=== PATIENT | female | born 1940 | race Caucasian/White ===

== ENCOUNTER 2017-08-06 23:13 | Emergency (ER) | payer OTHER ==
[~2017-08-06] VITALS: Ht 157.5 cm; Wt 77.5 kg
[~2017-08-06 23:13] MED LIST: BENA20TA14 PO; LEVO175T23 PO; NXM/40 PO; PRED10TA PO; SIMV20TA2 PO
[2017-08-06 23:26] VITALS: TEMP 36.3; Ht 157.5 cm; Wt 77.5 kg
[2017-08-06] MEDS ORDERED: KETOROLAC TROMETHAMINE 30 MG/ML VIAL IV STA (23:46)
--- NOTE | 2017-08-06 23:51 | EMERGENCY ROOM VISIT NOTE ---
History Report prepared by Jeanie: Harper Del Rosario Under the Supervision of: Dr. Prakash Chamberlain M.D. First contact with patient: 23:29 Chief Complaint: FALL Stated Complaint: FELL A WEEK AGO,RT SIDE PAIN History of Present Illness The patient is a 76 year old female who presents to the Emergency Room with complaints of persistent right chest pain starting last week. The patient fell while she was taking the garbage out last week. She slipped because of her shoes. She fell onto her right side and hit her head. She did not lose consciousness. She was able to get herself up. She went to see a doctor the next day. She did not have any X-rays and was thought to be in good enough condition to go home. Since her fall, she has had pain in her right chest and back. Today as she was getting ready for bed, the pain became too much for her to stay at home. She has not taken anything for her pain. The pain improves with a heating pad. The pain worsens with breathing and movement. She has some pain around her right eyebrow where she hit her head. She denies any abdominal pain, headache, dental pain, SOB, jaw pain, neck pain, trouble swallowing, hip pain, or leg pain. Her sister states that she has been acting normally since the fall. She has a history of hypertension, high cholesterol, and hypothyroidism. She takes a baby aspirin daily. Source of History: patient, sibling Onset: last week Position: chest (right) Quality: other (pain) Timing: other (persistent) Modifying Factors (Worsening): breathing, movement Modifying Factors (Relieving): heat Associated Symptoms: No headache, No neck pain, No SOB, No abdominal pain Note: Pt reports right eyebrow pain. Pt denies dental pain, jaw pain, trouble swallowing, hip pain, leg pain. Review of Systems See HPI for pertinent positives & negatives. A total of 10 systems reviewed and were otherwise negative. Past Medical & Surgical Medical Problems: (1) High cholesterol (2) Hypertension (3) Hypothyroidism Old medical records were reviewed. Nurse's notes were reviewed and I agree with. Family History No pertinent family history stated. Social History Marital Status: single Occupation Status: retired Current/Historical Medications Scheduled Amoxicillin & Pot Clavulanate (Augmentin 875-125 mg), 875 MG PO BID Aspirin (Aspirin Ec), 81 MG PO DAILY Benazepril (Lotensin), 20 MG PO DAILY Calcium Carbonate-Vitamin D (Calcium 600 + D), 2 TABS PO DAILY Levothyroxine Sodium (Levothyroxine Sodium), 1 TAB PO DAILY Multivitamin (Multivitamin), 1 TAB PO DAILY Omeprazole (Prilosec), 20 MG PO DAILY Simvastatin (Zocor), 20 MG PO QPM Allergies Uncoded Allergies: STEROIDS (Allergy, UNKNOWN, 12/05/13) HIGH BP Physical Exam Vital Signs Date Time Temp Pulse Resp B/P (MAP) Pulse Ox O2 Delivery O2 Flow Rate FiO2 08/07/17 00:59 64 16 146/78 99 08/06/17 23:26 36.3 72 18 210/85 97 Room Air Physical Exam General: Older female complaining of pain in her right chest with movement, otherwise no distress. Well developed well nourished, breathing comfortably on room air. Normal speech HEENT: Normal cephalic. No jaw tenderness. Bruise below the right eye. Pupils are equal round and reactive to light. Extraocular movements are intact. No hyphema. Oropharynx is pink with moist mucous membranes. No swelling of the mouth lips or tongue. Neck: Supple with a midline trachea. No meningeal signs or stiffness, no JVD or bruits. No Stridor. Chest: Clear to auscultation bilaterally. No wheezes or rhonchi. No increased work of breathing. Mild diffuse tenderness to the right anterior and posterior chest. Heart: regular rate and rhythm. Abdomen: Soft nontender, nondistended without rebound guarding or rigidity. Extremities: No cyanosis clubbing or edema. No calf tenderness or assymetry Spine/Back. Non tender to palpation. No CVA tenderness Skin: Good turgor without rashes. Neurologic exam: Cranial nerves two through 12 are intact. Motor and sensation are intact and symmetrical throughout. Medical Decision & Procedures ER Provider Diagnostic Interpretation: Ribs w/chest x-ray per my interpretation reveals no definite rib fracture seen, no pneumothorax, some increased markings at the right base, may be atelectasis or possible infiltrate. Radiology results as stated below per my review and [facility] radiologist interpretation: CAT scan of the head and face shows no acute traumatic injuries. Laboratory Results 08/06/17 23:55 Red Blood Count 4.83, Mean Corpuscular Volume 90.5, Mean Corpuscular Hemoglobin 30.8, Mean Corpuscular Hemoglobin Concent 34.1, Mean Platelet Volume 9.8, Neutrophils (%) (Auto) 49.2, Lymphocytes (%) (Auto) 39.6, Monocytes (%) (Auto) 7.7, Eosinophils (%) (Auto) 2.8, Basophils (%) (Auto) 0.6, Neutrophils # (Auto) 3.47, Lymphocytes # (Auto) 2.79, Monocytes # (Auto) 0.54, Eosinophils # (Auto) 0.20, Basophils # (Auto) 0.04 08/06/17 23:55 Test 08/06/17 23:55 08/07/17 00:03 White Blood Count 7.05 K/uL (4.8-10.8) Red Blood Count 4.83 M/uL (4.2-5.4) Hemoglobin 14.9 g/dL (12.0-16.0) Hematocrit 43.7 % (37-47) Mean Corpuscular Volume 90.5 fL (80-100) Mean Corpuscular Hemoglobin 30.8 pg (25-34) Mean Corpuscular Hemoglobin Concent 34.1 g/dl (32-36) Platelet Count 331 K/uL (130-400) Mean Platelet Volume 9.8 fL (7.4-10.4) Neutrophils (%) (Auto) 49.2 % Lymphocytes (%) (Auto) 39.6 % Monocytes (%) (Auto) 7.7 % Eosinophils (%) (Auto) 2.8 % Basophils (%) (Auto) 0.6 % Neutrophils # (Auto) 3.47 K/uL (1.4-6.5) Lymphocytes # (Auto) 2.79 K/uL (1.2-3.4) Monocytes # (Auto) 0.54 K/uL (0.11-0.59) Eosinophils # (Auto) 0.20 K/uL (0-0.5) Basophils # (Auto) 0.04 K/uL (0-0.2) RDW Standard Deviation 42.7 fL (36.4-46.3) RDW Coefficient of Variation 13.0 % (11.5-14.5) Immature Granulocyte % (Auto) 0.1 % Immature Granulocyte # (Auto) 0.01 K/uL (0.00-0.02) Anion Gap 6.0 mmol/L (3-11) Est Creatinine Clear Calc Drug Dose 61.7 ml/min Estimated GFR () 88.9 Estimated GFR (Non- 76.7 BUN/Creatinine Ratio 14.1 (10-20) Calcium Level 9.2 mg/dl (8.5-10.1) Total Bilirubin 0.2 mg/dl (0.2-1) Direct Bilirubin < 0.1 mg/dl (0-0.2) Aspartate Amino Transf (AST/SGOT) 29 U/L (15-37) Alanine Aminotransferase (ALT/SGPT) 36 U/L (12-78) Alkaline Phosphatase 124 U/L (45-117) Total Protein 7.5 gm/dl (6.4-8.2) Albumin 3.8 gm/dl (3.4-5.0) Lipase 152 U/L (73-393) Bedside Troponin I < 0.030 ng/ml (0-0.045) Laboratory studies as stated above per my review. Medications Administered Medications (Trade) Dose Ordered Sig/Royal Route Start Time Stop Time Status Last Admin Dose Admin Ketorolac Tromethamine (Toradol Inj) 15 mg NOW STAT IV 08/06/17 23:46 08/06/17 23:50 DC 08/07/17 00:05 15 MG Amoxicillin/ Clavulanate Potassium (Augmentin 875MG Home Pack) 1 homepack UD ONCE PO 08/07/17 01:45 08/07/17 01:46 DC 08/07/17 01:45 1 HOMEPACK ECG Indication: chest pain Rate (beats per minute): 65 Rhythm: normal sinus Findings: no acute ischemic change, no ectopy, other (LVH) Comparison ECG Date: 12-Dec-2016 Change: Rate is decreased, otherwise no change. ED Course 2329: Past medical records reviewed. The patient was evaluated in room A11B, and a complete history and physical examination were performed. 2346: Toradol Inj 15 mg IV. 0044: I reevaluated the patient. She seems comfortable. We are waiting on the CT results. 0128: Upon reevaluation, the patient is resting comfortably. I discussed the results and treatment plan with her. She verbalized agreement of the treatment plan. The patient was discharged home. 0145: Amoxicillin/Clavulanate Potassium 1 homepack PO. Medical Decision Differentials include, but are not limited to; rib fracture, pneumothorax, intracranial hemorrhage, facial fracture, concussion, cardiac disease. This patient comes in as described above. She suffered a mechanical fall week ago . She hit her head and face and continues had pain along the right side of the chest. It is worse with movement and breathing and palpation. She looks well except for when she moves. She has no abdominal pain or trauma. IV access was established and she was given Toradol 15 mg IV. I did x-ray of her chest with rib series as well as a CAT scan of her head and face. EKG and blood work was obtained. She was reassessed frequently. She seems resting comfortably. Her EKG and her symptoms do not suggest cardiac disease. She is definitely reproducible and this occurred after she fell. Troponin is not elevated. She has no acute electrode or metabolic abnormalities. She's no fever or white count to suggest infection. An x-ray however she does have some increased haziness in her right base of may be atelectasis. She certainly be at risk to have a pneumonia as well I will put her on Augmentin 875 mg twice day for possible early pneumonia. I do not see definite rib fractures. She does have some osteoporosis and degenerative changes so it's hard to 100% rule out a rib fracture. If she were to have rib fractures at this point, I doubt it would change management expert and it's basically pain medicine at this point. She does not typically take any medications for pain. She's can use ibuprofen and used Tylenol/acetaminophen for pertinent for breakthrough pain. I also gave her an incentive spirometer which encouraged her to use. She is going to keep her appointment with her doctor Wednesday for recheck and return to ER over the weekend if: increasing pain, worsening of symptoms, any new problems or concerns. Her blood pressure is mildly elevated and she is being treated for hypertension. She should follow up with her doctor get this rechecked as well. The patient and her sister happy with the plan and she was discharged to home. Head Trauma GCS Score: 15 Medication Reconcilliation Current Medication List: was personally reviewed by me Blood Pressure Screening Patient's blood pressure: Elevated blood pressure Blood pressure disposition: Referred to PCP Impression Primary Impression: Rib contusion Additional Impression: Right-sided chest wall pain Scribe Attestation The scribe's documentation has been prepared under my direction and personally reviewed by me in its entirety. I confirm that the note above accurately reflects all work, treatment, procedures, and medical decision making performed by me. Departure Information Dispostion Home / Self-Care Prescriptions Amoxicillin & Pot Clavulanate (Augmentin 875-125 mg) 1 Tab Tab 875 MG PO BID for 7 Days, TAB Prov: Prakash Chamberlain M.D. 08/07/17 Referrals Pranav Gutiérrez MD (PCP) Forms HOME CARE DOCUMENTATION FORM, IMPORTANT VISIT INFORMATION Patient Instructions My [facility] Additional Instructions Rest. Use incentive spirometer several times an hour and ensure that you are taking deep breaths Use ibuprofen 400 mg every 6 hours, take with food May also use acetaminophen/Tylenol a maximum of 650 mg every 6 hours Do not take acetaminophen/Tylenol with any other medications that contain acetaminophen/Tylenol Return if: Increasing pain, worsening of symptoms, fever or chills, shortness of breath, any new problems or concerns Use Augmentin 875 mg twice a day for the next 7 days Keep your appointment with your doctor on Wednesday and return to the ER over the weekend if symptoms worsen Problem Qualifiers
[2017-08-07 00:11] LABS: BASO % 0.6 %; BASO ABS # 0.04 K/uL (0-0.2); COMPLETE YES; EOS % 2.8 %; HEMATOCRIT 43.7 % (37-47); IG% 0.1 %; LYMPH % 39.6 %; LYMPH ABS # 2.79 K/uL (1.2-3.4); MEAN CELL VOLUME 90.5 fL (80-100); MEAN CORPUSCULAR HEMOGLOBIN 30.8 pg (25-34); MEAN CORPUSCULAR HGB CONC 34.1 g/dl (32-36); MEAN PLATELET VOLUME 9.8 fL (7.4-10.4); MONO % 7.7 %; NEUT % 49.2 %; PLATELET COUNT 331 K/uL (130-400); RED BLOOD COUNT 4.83 M/uL (4.2-5.4); WHITE BLOOD COUNT 7.05 K/uL (4.8-10.8)
[2017-08-07 00:29] LABS: ALT/SGPT 36 U/L (12-78); AST/SGOT 29 U/L (15-37); BLOOD UREA NITROGEN 11 mg/dl (7-18); BUN/CREATININE RATIO 14.1 (10-20); CALCIUM 9.2 mg/dl (8.5-10.1); CARBON DIOXIDE 30 mmol/L (21-32); CHLORIDE 104 mmol/L (98-107); CREATININE 0.76 mg/dl (0.60-1.20); GLUCOSE 128 mg/dl (70-99); POTASSIUM 3.8 mmol/L (3.5-5.1); SODIUM 140 mmol/L (136-145)
[2017-08-07 00:32] LABS: ALKALINE PHOSPHATASE 124 U/L (45-117)
[2017-08-07] MEDS ORDERED: AMOX875T PO (01:19)
[2017-08-07] MEDS ORDERED: MULT-506 PO (01:34)
[2017-08-07] MEDS ORDERED: PRLSR20 PO (01:34)
[2017-08-07] MEDS ORDERED: LEVO88TA3 PO (01:34)
[2017-08-07] MEDS ORDERED: ASPI81TA28 PO (01:35)
[2017-08-07] MEDS ORDERED: CALC-20 PO (01:35)
[2017-08-07] MEDS ORDERED: AMOXICIL/CLAVU 875MG HOME PACK PO ONE (01:45)
[2017-08-07 02:08] VITALS: BP 144/80; PULSE 74; O2SAT 97
--- NOTE | 2017-08-07 06:24 | DIAGNOSTIC IMAGING REPORT ---
HEAD CT NONCONTRAST CT DOSE: HISTORY: Fall. eval for trauma TECHNIQUE: Multiaxial CT images of the head were performed without the use of intravenous contrast. Automated exposure control was utilized for this study. A dose lowering technique was utilized adhering to the principles of ALARA. Comparison: None. Findings: Near complete opacification of the mastoid air cells. The paranasal sinuses are clear. The calvarium and skull base are intact. The ventricles and sulci are within normal limits. There is no mass, hematoma, midline shift, or acute infarct. Impression: No acute intracranial abnormality. Bilateral mastoid effusions. Electronically signed by: Erick Romano M.D. 08/07/2017 6:22 AM Dictated Date/Time: 08/07/2017 6:21 AM
--- NOTE | 2017-08-07 06:26 | DIAGNOSTIC IMAGING REPORT ---
MAXILLOFACIAL CT CT DOSE: 1094.16 mGy.cm HISTORY: Fall. Right eye pain. eval for trauma TECHNIQUE: Multiaxial CT images of the maxillofacial region were performed and reformatted in the coronal plane without the use of contrast. A dose lowering technique was utilized adhering to the principles of ALARA. COMPARISON: None. FINDINGS: The visualized cervical spine, skull base, pterygoid plates, nasal bones, lamina papyracea, orbital floors, mandible, and zygomatic arches are intact. No fractures. The globes and retrobulbar fat are unremarkable. Mild right periorbital soft tissue swelling. IMPRESSION: No fractures within the maxillofacial region. Electronically signed by: Erick Romano M.D. 08/07/2017 6:25 AM Dictated Date/Time: 08/07/2017 6:22 AM
--- NOTE | 2017-08-07 07:22 | DIAGNOSTIC IMAGING REPORT ---
R RIBS UNILATERAL WITH PA CHEST CLINICAL HISTORY: EVAL FOR RIB FX. Fall. Right-sided rib pain. COMPARISON STUDY: Chest 12/12/2010. FINDINGS: The heart is stable in size. Mildly tortuous thoracic aorta. No new focal lung consolidations. Increased markings within the right medial lung base are not significantly changed. No pleural effusions. No pneumothorax. Cholecystectomy. Suspect a right lateral third nondisplaced rib fracture. IMPRESSION: Probable nondisplaced right lateral third rib fracture. No pneumothorax. Electronically signed by: Erick Romano M.D. 08/07/2017 7:21 AM Dictated Date/Time: 08/07/2017 7:17 AM
== END 2017-08-07 02:10 | disposition home or self-care (01) ==
LOC: C.EDB 23:14 → C.EDA 08-07 02:10
DX: S20.20XA Contusion of thorax, unspecified, initial encounter (principal); R07.89 Other chest pain; W19.XXXA Unspecified fall, initial encounter; E78.00 Pure hypercholesterolemia, unspecified; I10 Essential (primary) hypertension; E03.9 Hypothyroidism, unspecified; Z79.82 Long term (current) use of aspirin

== ENCOUNTER 2021-09-02 22:29 | Inpatient (IN) ==
[2021-09-02] MEDS ORDERED: SODIUM CHLORIDE 0.9% 1000ML 1,000 ML IV ONE (23:43)
--- NOTE | 2021-09-02 23:49 | Emergency Department Note ---
History of Present Illness General Chief complaint: Vomiting Stated complaint: SICK IN STOMACH, VOMITING Time Seen by Provider: 09/02/21 23:20 Source: patient and family Mode of arrival: ambulatory Limitations: no limitations History of Present Illness Provider complaint: nausea, vomiting, congestion Onset (ago): day(s) 3 Maximum Pain Intensity: 5 Treatments prior to arrival: cold therapy and other This is a 80-year-old female presents emergency department complaining of nausea, vomiting, and recent nasal congestion. Daughter bedside states she is concerned for dehydration that she feels her mother has been worsening since Wednesday when she first developed symptoms of nasal congestion and rhinorrhea. Patient was afebrile and hemodynamically stable here. Patient states she has had difficulty eating and drinking over the last 2 days. States she has been intermittently nauseated. Patient states she does have intermittent congestion. She states she has been taking Claritin and using a nasal spray without any relief. She denies fevers or chills. Denies diarrhea, abdominal pain, chest pain, overt shortness of breath. Pt seen during a time of high acuity and national emergency pandemic while wearing PPE. Home Medications Medication Instructions Recorded Confirmed Type amlodipine 2.5 mg tablet 2.5 mg PO DAILY 09/03/21 09/03/21 History calcium citrate 250 mg 1 tab PO DAILY 09/03/21 09/03/21 History calcium-vitamin D3 5 mcg (200 unit) tablet coenzyme Q10 100 mg capsule 100 mg PO DAILY 09/03/21 09/03/21 History (CoQ-10) diphenhydramine HCl 25 mg tablet 25 mg PO Q6H PRN 09/03/21 09/03/21 History (Benadryl Allergy) fexofenadine 180 mg tablet 180 mg PO DAILY PRN 09/03/21 09/03/21 History fluticasone propionate 50 2 spray INTRANASAL DAILY 09/03/21 09/03/21 History mcg/actuation nasal spray,suspension hydrochlorothiazide 25 mg tablet 25 mg PO DAILY 09/03/21 09/03/21 History levothyroxine 100 mcg tablet 100 mcg PO DAILYBB 09/03/21 09/03/21 History losartan 100 mg tablet 100 mg PO DAILY 09/03/21 09/03/21 History magnesium 250 mg tablet 250 mg PO DAILY 09/03/21 09/03/21 History meloxicam 7.5 mg tablet 7.5 mg PO DAILY 09/03/21 09/03/21 History multivitamin 1 tab PO DAILY 09/03/21 09/03/21 History omeprazole 20 mg capsule,delayed 20 mg PO DAILYBB 09/03/21 09/03/21 History release simvastatin 20 mg tablet 20 mg PO HS 09/03/21 09/03/21 History Allergies Allergy/AdvReac Type Severity Reaction Status Date / Time oseltamivir [From Tamiflu] Allergy Unknown Nausea/Vomi Unverified 09/03/21 07:10 ting Corticosteroids AdvReac HIGH BP Verified 09/03/21 06:21 (Glucocorticoids) WITH STEROIDS Past Med/Surg History Medical History Hypertension Social History Smoking Status: Former smoker Preferred Language: Indonesian Feels Safe at Home: Yes Review of Systems A total of 10 systems reviewed and were otherwise negative All systems reviewed & are unremarkable except as noted in HPI & below Physical Exam Vital Signs Vital Signs - 24 hr 09/02/21 22:32 09/03/21 00:17 09/03/21 01:53 Temperature 36.5 C Temperature Source Temporal Artery Scan Pulse Rate 77 Pulse Rate [Apical] 68 66 Pulse Rhythm [Apical] Regular Regular Pulse Strength [Apical] Normal Respiratory Rate 18 16 16 Respiratory Effort / Characteristics Non-Labored Spontaneous Non-Labored Spontaneous Non-Labored Spontaneous Respiratory Depth Normal Normal Normal Respiratory Pattern Regular Regular Regular Blood Pressure 132/74 Blood Pressure [Right Arm] 119/79 137/70 Blood Pressure Mean 93 Blood Pressure Mean [Right Arm] 92 92 Blood Pressure Position Sitting Blood Pressure Position [Right Arm] Lying Lying Pulse Oximetry 93 95 97 Oxygen Delivery Method Room Air Nasal Cannula Nasal Cannula Oxygen Flow Rate 2 2 Sepsis Recent Fever Within 48 Hours No Sepsis New/Unexplained Change in Mental Status No Sepsis Action Taken by Nursing No Action Required 09/03/21 03:30 Temperature Temperature Source Pulse Rate Pulse Rate [Apical] 72 Pulse Rhythm [Apical] Pulse Strength [Apical] Respiratory Rate 20 Respiratory Effort / Characteristics Non-Labored Spontaneous Respiratory Depth Normal Respiratory Pattern Blood Pressure Blood Pressure [Right Arm] 146/82 H Blood Pressure Mean Blood Pressure Mean [Right Arm] 103 Blood Pressure Position Blood Pressure Position [Right Arm] Pulse Oximetry 96 Oxygen Delivery Method Nasal Cannula Oxygen Flow Rate 2 Sepsis Recent Fever Within 48 Hours Sepsis New/Unexplained Change in Mental Status Sepsis Action Taken by Nursing GENERAL: alert, ill appearing, well nourished, no distress, non-toxic EYE EXAM: normal conjunctiva, PERRL and EOM's grossly intact OROPHARYNX: no exudate, no erythema, lips, buccal mucosa, and tongue normal and mucous membranes are moist NECK: supple, no nuchal rigidity, no adenopathy, non-tender LUNGS: Clear to auscultation. Normal chest wall mechanics, no w/r/r, patient 89% on room air HEART: no murmurs, S1 normal and S2 normal ABDOMEN: abdomen soft, non-tender, normo-active bowel sounds, no masses, no rebound or guarding. BACK: Back is symmetrical on inspection and there is no deformity, no midline tenderness, no CVA tenderness. SKIN: no rashes and no bruising UPPER EXTREMITIES: upper extremities are grossly normal. FROM, nml pulses b/l. LOWER EXTREMITIES: No pitting edema. FROM, nml pulses b/l. NEURO EXAM: Normal sensorium, cranial nerves II-XII grossly intact, normal speech, no gross weakness of arms, no gross weakness of legs. Gross sensation intact. Course Course 0135: Patient resting, placed on 2 lpm as oxygen saturations continued to drop into the upper 90s. IV fluids infusing. Administered Medications Potassium Chloride 40 meq/ (Sodium Chloride) 1,020 mls @ 50 mls/hr IV .[id number] ONE Stop: 09/04/21 00:27 Last Admin: 09/03/21 05:00 Dose: 50 mls/hr Documented by: [id number] Levothyroxine Sodium (Levothyroxine Sodium 100 Mcg Tablet) 100 mcg PO DAILYBB LIZA Stop: 10/03/21 06:29 Last Admin: 09/03/21 07:01 Dose: 100 mcg Documented by: [id number] Discontinued Medications Dexamethasone Sodium Phosphate (DexamethasonePf 10 Mg/Ml Vial) 6 mg IV NOW ONE Stop: 09/03/21 03:15 Last Admin: 09/03/21 03:26 Dose: 6 mg Documented by: [id number] Sodium Chloride (Nss 1000ml) 1,000 mls @ 999 mls/hr IV .[id number] ONE Stop: 09/03/21 00:43 Last Infusion: 09/03/21 01:54 Dose: 0 mls/hr Documented by: [id number] Admin: 09/03/21 00:28 Dose: 999 mls/hr Documented by: [id number] Magnesium Sulfate/Dextrose (Magnesium Sulfate / D5w) 1 gm in 100 mls @ 100 mls/hr IV NOW STA Stop: 09/03/21 01:50 Last Infusion: 09/03/21 02:43 Dose: 0 mls/hr Documented by: [id number] Admin: 09/03/21 01:45 Dose: 100 mls/hr Documented by: [id number] Remdesivir 200 mg/ Sodium (Chloride) 250 mls @ 125 mls/hr IV ONE STA; Protocol Stop: 09/03/21 06:03 Last Admin: 09/03/21 05:00 Dose: 125 mls/hr Documented by: [id number] Potassium Chloride (Potassium Chloride Crtab 20 Meq Tabcr) 40 meq PO NOW STA Stop: 09/03/21 00:52 Last Admin: 09/03/21 01:45 Dose: 40 meq Documented by: [id number] Potassium Chloride (Potassium Chloride Crtab 20 Meq Tabcr) 40 meq PO NOW STA Stop: 09/03/21 04:05 Last Admin: 09/03/21 04:52 Dose: 40 meq Documented by: [id number] Medical Decision Making Differential Diagnosis Differential: Gastroenteritis, Food Borne, Esophageal Perforation, , Electrolyte Abnormality, Dehydration, Intraabdominal Infection, UTI/Pyelonephritis, Bowel Obstruction, Biliary Pathology, amongst other pathology entertained. Medical Records Attestation: I reviewed the patient's medical records. Home Medications Current Medication List: was personally reviewed by me Laboratory Data Attestation: I reviewed the patient's lab results. Result diagrams: 09/02/21 00:10 09/03/21 00:10 Lab Results 09/02/21 09/03/21 09/03/21 Range/Units 00:10 00:10 01:11 WBC 2.83 L (4.8-10.8) K/uL RBC 4.77 (4.2-5.4) M/uL Hgb 14.8 (12.0-16.0) g/dL Hct 41.4 (37-47) % MCV 86.8 (80-100) fL MCH 31.0 (25-34) pg MCHC 35.7 (32-36) g/dL RDW Std Deviation 40.7 (36.4-46.3) fL RDW Coeff of [place] 12.6 (11.5-14.5) % Plt Count 229 (130-400) K/uL MPV 9.5 (7.4-10.4) fL Immature Gran % (Auto) 0.4 % Neut % (Auto) 67.1 % Lymph % (Auto) 19.4 % [place] % (Auto) 13.1 % Eos % (Auto) 0.0 % Baso % (Auto) 0.0 % Neut # (Auto) 1.90 (1.4-6.5) K/uL Lymph # (Auto) 0.55 L (1.2-3.4) K/uL [place] # (Auto) 0.37 (0.11-0.59) K/uL Eos # (Auto) 0.00 (0-0.5) K/uL Baso # (Auto) 0.00 (0-0.2) K/uL Immature Gran # (Auto) 0.01 (0.00-0.02) K/uL Sodium 131 L (136-145) mmol/L Potassium 2.7 L (3.5-5.1) mmol/L Chloride 93 L (98-107) mmol/L Carbon Dioxide 30 (21-32) mmol/L Anion Gap 8.0 (3-11) BUN 17 (7-18) mg/dl Creatinine 0.74 (0.6-1.2) mg/dl Est Cr Clr Drug Dosing Not Reportable Est GFR ( Amer) 89.3 ml/min Est GFR (Non-Af Amer) 77.1 ml/min BUN/Creatinine Ratio 23.0 H (10-20) Glucose 158 H (70-99) mg/dl Calcium 8.8 (8.5-10.1) mg/dl Magnesium 1.7 L (1.8-2.4) mg/dl Total Bilirubin 0.2 (0.2-1) mg/dl AST 41 H (15-37) U/L ALT 37 (12-78) U/L Alkaline Phosphatase 96 (45-117) U/L Troponin I < 0.015 (0-0.045) ng/ml Total Protein 7.3 (6.4-8.2) gm/dl Albumin 3.5 (3.4-5.0) gm/dl Globulin 3.8 (2.5-4.0) gm/dl Albumin/Globulin Ratio 0.9 (0.9-2) TSH 4.770 H (0.300-4.500) uIu/ml Free T4 1.63 H (0.8-1.6) ng/dl Urine Color Urine Appearance (Clear) Urine pH (4.5-7.5) Ur Specific [place] (1.000-1.030) Urine Protein (Negative) Urine Glucose (UA) (Negative) Urine Ketones (Negative) Urine Blood (Negative) Urine Nitrite (Negative) Urine Bilirubin (Negative) Urine Urobilinogen (Negative) Ur Leukocyte Esterase (Negative) COVID-19 Eval Order Cov[facility] at [facility] SARS-CoV-2 (PCR) (Negative) 09/03/21 09/03/21 Range/Units 01:11 03:25 WBC (4.8-10.8) K/uL RBC (4.2-5.4) M/uL Hgb (12.0-16.0) g/dL Hct (37-47) % MCV (80-100) fL MCH (25-34) pg MCHC (32-36) g/dL RDW Std Deviation (36.4-46.3) fL RDW Coeff of [place] (11.5-14.5) % Plt Count (130-400) K/uL MPV (7.4-10.4) fL Immature Gran % (Auto) % Neut % (Auto) % Lymph % (Auto) % [place] % (Auto) % Eos % (Auto) % Baso % (Auto) % Neut # (Auto) (1.4-6.5) K/uL Lymph # (Auto) (1.2-3.4) K/uL [place] # (Auto) (0.11-0.59) K/uL Eos # (Auto) (0-0.5) K/uL Baso # (Auto) (0-0.2) K/uL Immature Gran # (Auto) (0.00-0.02) K/uL Sodium (136-145) mmol/L Potassium (3.5-5.1) mmol/L Chloride (98-107) mmol/L Carbon Dioxide (21-32) mmol/L Anion Gap (3-11) BUN (7-18) mg/dl Creatinine (0.6-1.2) mg/dl Est Cr Clr Drug Dosing Est GFR ( Amer) ml/min Est GFR (Non-Af Amer) ml/min BUN/Creatinine Ratio (10-20) Glucose (70-99) mg/dl Calcium (8.5-10.1) mg/dl Magnesium (1.8-2.4) mg/dl Total Bilirubin (0.2-1) mg/dl AST (15-37) U/L ALT (12-78) U/L Alkaline Phosphatase (45-117) U/L Troponin I (0-0.045) ng/ml Total Protein (6.4-8.2) gm/dl Albumin (3.4-5.0) gm/dl Globulin (2.5-4.0) gm/dl Albumin/Globulin Ratio (0.9-2) TSH (0.300-4.500) uIu/ml Free T4 (0.8-1.6) ng/dl Urine Color Yellow Urine Appearance Clear (Clear) Urine pH 6.0 (4.5-7.5) Ur Specific [place] 1.018 (1.000-1.030) Urine Protein Negative (Negative) Urine Glucose (UA) Negative (Negative) Urine Ketones 2+ H (Negative) Urine Blood Negative (Negative) Urine Nitrite Negative (Negative) Urine Bilirubin Negative (Negative) Urine Urobilinogen Negative (Negative) Ur Leukocyte Esterase Negative (Negative) COVID-19 Eval Order SARS-CoV-2 (PCR) POSITIVE A* (Negative) Imaging Data My Impression: X-ray: I interpreted the following studies. Chest: A single view study of the chest was reviewed and was negative for cardiomegaly, effusion, pulmonary edema, or wide mediastinum. Slightly increased interstitial markings bilateral lower lobes. Radiologist's Impression: Chest X-Ray 09/02/21 23:43 XR chest 1V portable HISTORY: cough COMPARISON: Chest 01/14/2021. FINDINGS: No pneumothorax. No pleural effusions. The heart is mildly enlarged. The upper lung zones remain clear. No evidence for pulmonary edema. Interstitial thickening at the lung bases persist. IMPRESSION: No change in the bibasilar interstitial thickening. This may be chronic. No new focal lung consolidations identified. ACT 112: Negative or not required by law. Electronically signed by: Erick Romano M.D. 09/03/2021 8:25 AM ECG Data Attestation: I personally reviewed and interpreted this ECG as follows: Indication: + SOB/dyspnea Rate (beats per minute): 74 Rhythm: + normal sinus ECG Intervals/blocks: + Normal QRS and + Normal QT ECG Pierre: + Normal ECG ST segments: + Normal ST segments MDM Narrative This is a 80-year-old female brought in by family due to concern for dehydration given poor p.o. intake and recent URI. Patient's labs with hyponatremia, hypokalemia, patient did appear clinically dehydrated. She was started on IV fluids, and given recent URI symptoms in addition, a Covid swab was performed which was positive. I feel this likely explains patient's URI symptoms, nausea, and weakness. Patient was noted to be mildly hypoxic during my initial exam at 89%. Patient did eventually require placement of oxygen via nasal cannula at 2 L/min to maintain in the low to mid 90s. Due to need for ongoing rehydration, a dvanced age, hypoxia, need for additional electrolyte repletion, case discussed with hospitalist for additional evaluation and management. An order was placed for continuous cardiac monitoring. The monitor shows a rate of _76__ with _normal sinus_ rhythm. Impression & Plan Nausea & vomiting, Dehydration, COVID-19, Hypokalemia, Hyponatremia, Hypoxia Discharge Plan Visit Data Chief Complaint: Vomiting Stated Complaint: SICK IN STOMACH, VOMITING ED Provider: Earline Solomon Discharge Problem: Nausea & vomiting, Dehydration, COVID-19, Hypokalemia, Hyponatremia, Hypoxia Patient Disposition: Being Evaluated by Hospitalist Condition: Good Discharge Instructions Interventions: ED Discharge Assessment Last Done: 09/03/21 06:04
[2021-09-03 00:21] LABS: Hematocrit (blood only) 41.4 % (37-47); Hemoglobin 14.8 g/dL (12.0-16.0); Immature Granulocytes # (auto) 0.01 K/uL (0.00-0.02); Immature Granulocytes % (auto) 0.4 %; Lymphocytes # (auto) 0.55 K/uL (1.2-3.4); Lymphocytes % (auto) 19.4 %; Mean Corpuscular Hgb Conc 35.7 g/dL (32-36); Mean Corpuscular Volume 86.8 fL (80-100); Mean Platelet Volume 9.5 fL (7.4-10.4); Monocytes # (auto) 0.37 K/uL (0.11-0.59); Monocytes % (auto) 13.1 %; Neutrophils % (auto) 67.1 %; Platelet Count 229 K/uL (130-400); RDW Coefficient of Variation 12.6 % (11.5-14.5); RDW Standard Deviation 40.7 fL (36.4-46.3); Red Blood Count 4.77 M/uL (4.2-5.4); White Blood Count 2.83 K/uL (4.8-10.8)
[2021-09-03 00:38] LABS: Alanine Aminotransferase 37 U/L (12-78); Albumin Level 3.5 gm/dl (3.4-5.0); Aspartate Aminotransferase 41 U/L (15-37); Blood Urea Nitrogen 17 mg/dl (7-18); Calcium 8.8 mg/dl (8.5-10.1); Carbon Dioxide 30 mmol/L (21-32); Chloride 93 mmol/L (98-107); Est GFR (African American) 89.3 ml/min; Est GFR (Non-African American) 77.1 ml/min; Glucose 158 mg/dl (70-99); Magnesium 1.7 mg/dl (1.8-2.4); Potassium 2.7 mmol/L (3.5-5.1); Sodium 131 mmol/L (136-145)
[2021-09-03 00:49] LABS: Albumin Globulin Ratio 0.9 (0.9-2); Alkaline Phosphatase 96 U/L (45-117); Bilirubin,Total 0.2 mg/dl (0.2-1); Globulin 3.8 gm/dl (2.5-4.0); Total Protein 7.3 gm/dl (6.4-8.2); Troponin I < 0.015 ng/ml (0-0.045)
[2021-09-03] MEDS ORDERED: POTASSIUM CHLORIDE CRTAB 20 MEQ TABCR PO STA ×2 (00:51→04:04)
[2021-09-03] MEDS ORDERED: MAGNESIUM SULFATE / D5W 1 GM/100 ML BAG IV STA (00:51)
[2021-09-03 01:02] LABS: T4 Free Thyroxine 1.63 ng/dl (0.8-1.6)
[2021-09-03] MEDS ORDERED: dexAMETHasone**PF** 10 MG/ML VIAL IV ONE (03:14)
[2021-09-03 03:45] LABS: Appearance Urine Clear (Clear); Bilirubin Urine Negative (Negative); Blood Urine Negative (Negative); Color Urine Yellow; Glucose Urine UA Negative (Negative); Ketones Urine 2+ (Negative); Leukocyte Esterase Urine Negative (Negative); Nitrite Urine Negative (Negative); Protein Urine Negative (Negative); Specific Gravity Urine 1.018 (1.000-1.030); Urobilinogen Urine Negative (Negative)
--- NOTE | 2021-09-03 03:57 | History & Physical Report ---
Date of Service September 03, 2021 Assessment & Plan (1) Pneumonia due to COVID-19 virus: Plan: Severe given O2 sats of less than 94 obtained at the ER Hypokalemia secondary to diarrhea, home diuretic Rx hx diastolic dysfunction (EF 55 to 20%, TTE 2019), patient euvolemic to dry hypertension, slightly elevated hyperlipidemia on statin Rx hypothyroidism, TSH slightly elevated prediabetes, hemoglobin A1c of 6.18 May 2021 past tobacco abuse Medical telemetry Decadron, Remdesivir Replace potassium, hold home diuretic for now until patient euvolemic DVT prophylaxis. Lovenox subcu Full code Patient requests for her daughter to be given updates. Ms. Depeti Drew, contact #[phone]. Text document was generated using [employer] voice recognition software. It may contain grammatical or spelling errors. Kindly contact undersigned for clarification of any documentation item in question. History of Present Illness Chief Complaint: Cough, shortness of breath Primary Care Provider: Pranav Gutiérrez MD History obtained from patient and records. Medical history significant for diastolic dysfunction (EF 55 to 20%, TTE 2019), valvular heart disease (mild MR, mild AR on recent TTE), hypertension, hyperlipidemia, hypothyroidism, prediabetes, past tobacco abuse. Last confinement 2010 for bacterial pneumonia. 1 week history of sinus congestion and stuffy nose with body aches. Symptom management recommended by PCP on outpatient evaluation a few days ago. No known recent COVID-19 contacts. Patient has not received COVID-19 vaccination. Persistent dry cough with shortness of breath on exertion without chest pain. Nausea, vomiting diarrhea without abdominal pain. Lowest O2 sats at the ER 93 on room air. Decadron administered after positive COVID-19 test resulted. Medical History as above Surgical History : Cataract surgery, Cholecystostomy, bladder defect repair, throat surgery Family History : Breast cancer Personal/Social history : Past tobacco abuse, no EtOH intake, homemaker in her younger years Allergies Allergy/AdvReac Type Severity Reaction Status Date / Time oseltamivir [From Tamiflu] Allergy Unknown Nausea/Vomi Unverified 09/03/21 07:10 ting Corticosteroids AdvReac HIGH BP Verified 09/03/21 06:21 (Glucocorticoids) WITH STEROIDS Home Medications Medication Instructions Recorded Confirmed Type amlodipine 2.5 mg tablet 2.5 mg PO DAILY 09/03/21 09/03/21 History calcium citrate 250 mg 1 tab PO DAILY 09/03/21 09/03/21 History calcium-vitamin D3 5 mcg (200 unit) tablet coenzyme Q10 100 mg capsule 100 mg PO DAILY 09/03/21 09/03/21 History (CoQ-10) diphenhydramine HCl 25 mg tablet 25 mg PO Q6H PRN 09/03/21 09/03/21 History (Benadryl Allergy) fexofenadine 180 mg tablet 180 mg PO DAILY PRN 09/03/21 09/03/21 History fluticasone propionate 50 2 spray INTRANASAL DAILY 09/03/21 09/03/21 History mcg/actuation nasal spray,suspension hydrochlorothiazide 25 mg tablet 25 mg PO DAILY 09/03/21 09/03/21 History levothyroxine 100 mcg tablet 100 mcg PO DAILYBB 09/03/21 09/03/21 History losartan 100 mg tablet 100 mg PO DAILY 09/03/21 09/03/21 History magnesium 250 mg tablet 250 mg PO DAILY 09/03/21 09/03/21 History meloxicam 7.5 mg tablet 7.5 mg PO DAILY 09/03/21 09/03/21 History multivitamin 1 tab PO DAILY 09/03/21 09/03/21 History omeprazole 20 mg capsule,delayed 20 mg PO DAILYBB 09/03/21 09/03/21 History release simvastatin 20 mg tablet 20 mg PO HS 09/03/21 09/03/21 History Past Med/Surg History Medical History Hypertension Social History Smoking Status: Never smoker Hx Alcohol Use: No Hx Substance Use: No Preferred Language: Grenadian Communication Ability: Effective 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 Beliefs That Will Affect Care: None Current Living Situation: Alone Feels Safe at Home: Yes Safety Concerns: Feels Safe At This Time Review of Systems Review of Systems: As per HPI, all 10 systems reviewed, all other ROS negative Physical Exam Physical Exam: GENERAL: Comfortable, slightly hard of hearing, pleasant, no respiratory distress SKIN: Normal color, warm HEENT: [place] palpebral conjunctivae, no ptosis, dry buccal mucosa, nasal cannula in place NECK : Supple, no tenderness CHEST : Decreased breath sounds, no tenderness HEART : RRR, no obvious murmurs ABDOMEN: Some distention, nontender EXTREMITIES : Minimal LE swelling, no LE tenderness, no other conspicuous deformities noted NEUROLOGIC : Coherent, no facial asymmetry, mild hearing impairment, no other gross focality Results & Data Results & Data ([facility]) Vital Signs (Past 12 Hours) Vital Signs Temp Pulse Pulse Resp BP BP Pulse Ox 09/03/21 03:30 72 20 146/82 H 96 09/03/21 01:53 66 16 137/70 97 09/03/21 00:17 68 16 119/79 95 09/02/21 22:32 36.5 C 77 18 132/74 93 Laboratory Results Laboratory Results WBC 2.83 K/uL (4.8-10.8) L 09/02/21 00:10 RBC 4.77 M/uL (4.2-5.4) 09/02/21 00:10 Hgb 14.8 g/dL (12.0-16.0) 09/02/21 00:10 Hct 41.4 % (37-47) 09/02/21 00:10 MCV 86.8 fL (80-100) 09/02/21 00:10 MCH 31.0 pg (25-34) 09/02/21 00:10 MCHC 35.7 g/dL (32-36) 09/02/21 00:10 RDW Std Deviation 40.7 fL (36.4-46.3) 09/02/21 00:10 RDW Coeff of [place] 12.6 % (11.5-14.5) 09/02/21 00:10 Plt Count 229 K/uL (130-400) 09/02/21 00:10 MPV 9.5 fL (7.4-10.4) 09/02/21 00:10 Immature Gran % (Auto) 0.4 % 09/02/21 00:10 Neut % (Auto) 67.1 % 09/02/21 00:10 Lymph % (Auto) 19.4 % 09/02/21 00:10 [place] % (Auto) 13.1 % 09/02/21 00:10 Eos % (Auto) 0.0 % 09/02/21 00:10 Baso % (Auto) 0.0 % 09/02/21 00:10 Neut # (Auto) 1.90 K/uL (1.4-6.5) 09/02/21 00:10 Lymph # (Auto) 0.55 K/uL (1.2-3.4) L 09/02/21 00:10 [place] # (Auto) 0.37 K/uL (0.11-0.59) 09/02/21 00:10 Eos # (Auto) 0.00 K/uL (0-0.5) 09/02/21 00:10 Baso # (Auto) 0.00 K/uL (0-0.2) 09/02/21 00:10 Immature Gran # (Auto) 0.01 K/uL (0.00-0.02) 09/02/21 00:10 Sodium 131 mmol/L (136-145) L 09/03/21 00:10 Potassium 2.7 mmol/L (3.5-5.1) L 09/03/21 00:10 Chloride 93 mmol/L (98-107) L 09/03/21 00:10 Carbon Dioxide 30 mmol/L (21-32) 09/03/21 00:10 Anion Gap 8.0 (3-11) 09/03/21 00:10 BUN 17 mg/dl (7-18) 09/03/21 00:10 Creatinine 0.74 mg/dl (0.6-1.2) 09/03/21 00:10 Est Cr Clr Drug Dosing Not Reportable 09/03/21 00:10 Est GFR ( Amer) 89.3 ml/min 09/03/21 00:10 Est GFR (Non-Af Amer) 77.1 ml/min 09/03/21 00:10 BUN/Creatinine Ratio 23.0 (10-20) H 09/03/21 00:10 Glucose 158 mg/dl (70-99) H 09/03/21 00:10 Calcium 8.8 mg/dl (8.5-10.1) 09/03/21 00:10 Magnesium 1.7 mg/dl (1.8-2.4) L 09/03/21 00:10 Total Bilirubin 0.2 mg/dl (0.2-1) 09/03/21 00:10 AST 41 U/L (15-37) H 09/03/21 00:10 ALT 37 U/L (12-78) 09/03/21 00:10 Alkaline Phosphatase 96 U/L (45-117) 09/03/21 00:10 Troponin I < 0.015 ng/ml (0-0.045) 09/03/21 00:10 Total Protein 7.3 gm/dl (6.4-8.2) 09/03/21 00:10 Albumin 3.5 gm/dl (3.4-5.0) 09/03/21 00:10 Globulin 3.8 gm/dl (2.5-4.0) 09/03/21 00:10 Albumin/Globulin Ratio 0.9 (0.9-2) 09/03/21 00:10 TSH 4.770 uIu/ml (0.300-4.500) H 09/03/21 00:10 Free T4 1.63 ng/dl (0.8-1.6) H 09/03/21 00:10 Urine Color Yellow 09/03/21 03:25 Urine Appearance Clear (Clear) 09/03/21 03:25 Urine pH 6.0 (4.5-7.5) 09/03/21 03:25 Ur Specific [place] 1.018 (1.000-1.030) 09/03/21 03:25 Urine Protein Negative (Negative) 09/03/21 03:25 Urine Glucose (UA) Negative (Negative) 09/03/21 03:25 Urine Ketones 2+ (Negative) H 09/03/21 03:25 Urine Blood Negative (Negative) 09/03/21 03:25 Urine Nitrite Negative (Negative) 09/03/21 03:25 Urine Bilirubin Negative (Negative) 09/03/21 03:25 Urine Urobilinogen Negative (Negative) 09/03/21 03:25 Ur Leukocyte Esterase Negative (Negative) 09/03/21 03:25 COVID-19 Eval Order Covid19 at [facility] 09/03/21 01:11 SARS-CoV-2 (PCR) POSITIVE (Negative) A* 09/03/21 01:11 Diagnostic Findings Chest x-ray as per my interpretation bibasilar infiltrates EKG as per my interpretation : Rate 75, NSR, LAD, LAFB, diffuse T wave flattening
[2021-09-03] MEDS ORDERED: REMDESIVIR 200 MG in SODIUM CHLORIDE 0.9% 210 ML IV STA (04:04)
[2021-09-03] MEDS ORDERED: POTASSIUM CHLORIDE 40 MEQ in SODIUM CHLORIDE 0.9% 1000ML 1,000 ML IV ONE (04:04)
[2021-09-03] MEDS ORDERED: ALBUTEROL HFA 8 GM INHALER INH PRN (06:03)
[2021-09-03] MEDS ORDERED: SODIUM CHLORIDE 0.65% NA SOLN 45 ML (OCEAN) PRN (06:03)
[2021-09-03] MEDS ORDERED: ACETAMINOPHEN 325 MG TAB PO PRN (06:03)
[2021-09-03] MEDS: LEVOTHYROXINE SODIUM 100 MCG TABLET PO SCH (07:01)
--- NOTE | 2021-09-03 08:26 | XRay Report ---
XR chest 1V portable HISTORY: cough COMPARISON: Chest 01/14/2021. FINDINGS: No pneumothorax. No pleural effusions. The heart is mildly enlarged. The upper lung zones r emain clear. No evidence for pulmonary edema. Interstitial thickening at the lung bases persist. IMPRESSION: No change in the bibasilar interstitial thickening. This may be chronic. No new focal lung consolidat ions identified. ACT 112: Negative or not required by law. Electronically signed by: Erick Romano M.D. 09/03/2021 8:25 AM
[2021-09-03] MEDS ORDERED: MULTIVITAMIN TAB PO SCH (09:00)
[2021-09-03] MEDS: amLODIPine BESYLATE 5 MG TAB PO SCH (09:21)
[2021-09-03] MEDS: ENOXAPARIN INJ 40 MG/0.4 ML SYR SQ SCH (09:22)
[2021-09-03] MEDS: MULTIVITAMIN TAB PO SCH (09:22)
[2021-09-03] MEDS: ASPIRIN 81 MG ECTAB PO SCH (09:22)
[2021-09-03] MEDS: LOSARTAN POTASSIUM 50 MG TAB PO SCH (09:22)
[2021-09-03] MEDS: PANTOprazole 40 MG TAB PO SCH (09:22)
[2021-09-03] MEDS ORDERED: CALCIUM CARBONATE 500 MG CHEWABLE TAB PO PRN (11:17)
[2021-09-03] MEDS ORDERED: CALCIUM CARBONATE 500 MG CHEWABLE TAB ONE (11:23)
--- NOTE | 2021-09-03 15:28 | Hospitalist Progress Note ---
Date of Service September 03, 2021 Assessment & Plan (1) Pneumonia due to COVID-19 virus: Plan: COVID 19 Infection Hypoxia COVID Screen:positive on 09/03/21 CXR:No change in the bibasilar interstitial thickening. This may be chronic. No new focal lung consolidations identified. Troponin negative Check CRP Continue Remdesivir, Dexamethasone Isolation precautions Encourage frequent Proning Lasix, Albuterol PRN Continue Supplemental Oxygen as needed DVT prophylaxis on Lovenox Monitor LFTs, renal function while on Remdesivir Hypokalemia Hypomagnesemia In setting of home diuretic use Replace electrolytes as needed H/O Diastolic CHF No signs of decompensation Monitor volume status Resume home diuretics as able Hyponatremia Hold home diuretics Monitor sodium levels Received gentle IV fluids Hypertension Continue amlodipine, losartan Hyperlipidemia on statin Hypothyroidism TSH is slightly elevated in setting of acute infection Continue levothyroxine Prediabetes HbA1C:6.18 May 2021 Past tobacco abuse DVT Px: Lovenox SQ CODE STATUS Full code Admission and Anticipated Discharge Date Admission Date: September 03, 2021 Subjective Patient is seen and examined at bedside States having heartburn earlier today which improved Also reports cough and generalized weakness Denies any significant dyspnea Offers no other complaints Review of Systems Review of Systems: All systems reviewed & are unremarkable except as noted in Subjective Physical Exam Physical Exam: Physical Exam: Vitals signs as noted above General Appearance:Moderately built and nourished, no apparent distress Head: normocephalic, Atraumatic Eyes: normal inspection, EOMI Neck: supple, Trachea midline Respiratory/Chest: Decreased breath sounds, CTA, No accessory muscle use Cardiovascular: S1, S2, No murmur Abdomen/GI:Soft, Non tender, Bowel sounds present Extremities/Musculoskeletal:normal inspection, Trace edema Neurologic/Psych:AAOX3, grossly no focal neurological deficits Skin: normal color, warm Results & Data Results & Data ([facility]) Vital Signs (Past 12 Hours) Vital Signs Temp Pulse Resp BP Pulse Ox 09/03/21 12:00 37 C 69 18 124/54 L 95 09/03/21 07:11 37.1 C 74 18 146/88 H 99 09/03/21 06:30 74 18 133/82 96 09/03/21 05:30 73 16 149/78 H 93 09/03/21 03:30 72 20 146/82 H 96 Laboratory Results Short CBC 09/02/21 Range/Units 00:10 WBC 2.83 L (4.8-10.8) K/uL Hgb 14.8 (12.0-16.0) g/dL Hct 41.4 (37-47) % Plt Count 229 (130-400) K/uL BMP 09/03/21 00:10 Sodium 131 L Potassium 2.7 L Chloride 93 L Carbon Dioxide 30 BUN 17 Creatinine 0.74 Glucose 158 H Calcium 8.8 Cardiac Enzymes 09/03/21 Range/Units 00:10 Troponin I < 0.015 (0-0.045) ng/ml Liver Function 09/03/21 Range/Units 00:10 Total Bilirubin 0.2 (0.2-1) mg/dl AST 41 H (15-37) U/L ALT 37 (12-78) U/L Alkaline Phosphatase 96 (45-117) U/L Albumin 3.5 (3.4-5.0) gm/dl Urine 09/03/21 Range/Units 03:25 Urine Color Yellow Urine Appearance Clear (Clear) Urine pH 6.0 (4.5-7.5) Ur Specific [place] 1.018 (1.000-1.030) Urine Protein Negative (Negative) Urine Glucose (UA) Negative (Negative)
[2021-09-03] MEDS: PATIENT'S HEIGHT AND/OR WEIGHT NEEDED SCH ×5 (17:16→20:45)
[2021-09-03 20:17] LABS: BUN Creatinine Ratio 24.1 (10-20); Calcium 8.1 mg/dl (8.5-10.1); Creatinine Clr Calc Pharmacy 71.6 ml/min; Est GFR (African American) 100.5 ml/min; Est GFR (Non-African American) 86.7 ml/min; Potassium 3.7 mmol/L (3.5-5.1)
[2021-09-03] MEDS: FAMOTIDINE 10 MG TABLET PO SCH (21:39)
[2021-09-03] MEDS: SIMVASTATIN 20 MG TAB PO SCH (21:39)
[2021-09-04] MEDS: REMDESIVIR 100 MG in SODIUM CHLORIDE 0.9% 230 ML IV SCH (01:45)
[2021-09-04] MEDS: LEVOTHYROXINE SODIUM 100 MCG TABLET PO SCH (05:54)
[2021-09-04 06:22] LABS: Basophils # (auto) 0.01 K/uL (0-0.2); Basophils % (auto) 0.2 %; Hematocrit (blood only) 38.7 % (37-47); Hemoglobin 13.7 g/dL (12.0-16.0); Immature Granulocytes # (auto) 0.01 K/uL (0.00-0.02); Immature Granulocytes % (auto) 0.2 %; Lymphocytes # (auto) 0.96 K/uL (1.2-3.4); Lymphocytes % (auto) 17.6 %; Mean Corpuscular Hemoglobin 31.2 pg (25-34); Mean Corpuscular Hgb Conc 35.4 g/dL (32-36); Mean Corpuscular Volume 88.2 fL (80-100); Mean Platelet Volume 9.8 fL (7.4-10.4); Monocytes # (auto) 0.49 K/uL (0.11-0.59); Neutrophils # (auto) 3.98 K/uL (1.4-6.5); Platelet Count 232 K/uL (130-400); RDW Standard Deviation 42.2 fL (36.4-46.3); Red Blood Count 4.39 M/uL (4.2-5.4); White Blood Count 5.45 K/uL (4.8-10.8)
[2021-09-04 06:50] LABS: Albumin Level 2.8 gm/dl (3.4-5.0); BUN Creatinine Ratio 26.9 (10-20); C Reactive Protein 0.37 mg/dl (0-0.29); Calcium 8.4 mg/dl (8.5-10.1); Creatinine Clr Calc Pharmacy 66.1 ml/min; Est GFR (African American) 97.9 ml/min; Est GFR (Non-African American) 84.4 ml/min; Potassium 3.4 mmol/L (3.5-5.1)
[2021-09-04 06:53] LABS: Albumin Globulin Ratio 0.8 (0.9-2); Bilirubin,Total 0.3 mg/dl (0.2-1); Globulin 3.4 gm/dl (2.5-4.0); Total Protein 6.2 gm/dl (6.4-8.2)
[2021-09-04] MEDS: amLODIPine BESYLATE 5 MG TAB PO SCH (07:39)
[2021-09-04] MEDS: ASPIRIN 81 MG ECTAB PO SCH (07:40)
[2021-09-04] MEDS: FAMOTIDINE 10 MG TABLET PO SCH ×2 (07:40→20:14)
[2021-09-04] MEDS: PANTOprazole 40 MG TAB PO SCH (07:41)
[2021-09-04] MEDS: LOSARTAN POTASSIUM 50 MG TAB PO SCH (07:41)
[2021-09-04] MEDS: MULTIVITAMIN TAB PO SCH (07:42)
[2021-09-04] MEDS: ENOXAPARIN INJ 40 MG/0.4 ML SYR SQ SCH (07:43)
[2021-09-04] MEDS ORDERED: POTASSIUM CHLORIDE CRTAB 20 MEQ TABCR PO ONE ×2 (09:38→13:00)
--- NOTE | 2021-09-04 12:03 | Electrocardiogram Report ---
Test Reason : Blood Pressure : / mmHG Vent. Rate : 074 BPM Atrial Rate : 074 BPM P-R Int : 176 ms QRS Dur : 082 ms QT Int : 428 ms P-R-T Axes : -04 -14 079 degrees QTc Int : 475 ms Poor data quality, interpretation may be adversely affected Normal sinus rhythm Anterolateral infarct (cited on or before 02-SEP-2021) Abnormal ECG When compared with ECG of 04-FEB-2021 21:52, Nonspecific T wave abnormality now evident in Lateral leads Confirmed by Cedrick Schultz ([id number]) on 09/04/2021 12:03:28 PM Referred By: REFERRED SELF Confirmed By:Cedrick Schultz
[2021-09-04] MEDS: dexAMETHasone 6 MG in SYRINGE 0 ML IV SCH (12:10)
[2021-09-04] MEDS: SODIUM CHLORIDE 0.9% 10ML FLUSH IV SCH (12:15)
--- NOTE | 2021-09-04 18:56 | Hospitalist Progress Note ---
Date of Service September 04, 2021 Assessment & Plan (1) Pneumonia due to COVID-19 virus: Plan: COVID 19 Infection Hypoxia COVID Screen:positive on 09/03/21 CXR:No change in the bibasilar interstitial thickening. This may be chronic. No new focal lung consolidations identified. Troponin negative CRP: 0.37 Continue Remdesivir, Dexamethasone Isolation precautions Encourage frequent Proning Lasix, Albuterol PRN Continue Supplemental Oxygen as needed DVT prophylaxis on Lovenox Monitor LFTs, renal function while on Remdesivir Saturating 95% on 3 L supplemental oxygen Hypokalemia Hypomagnesemia In setting of home diuretic use Replace electrolytes as needed H/O Diastolic CHF No signs of decompensation Monitor volume status Continue HCTZ given electrolyte imbalances Start on Lasix 20 mg daily Hyponatremia Likely due to diuretics Monitor sodium levels Received gentle IV fluids Sodium 135 today Hypertension Continue amlodipine, losartan Hyperlipidemia on statin Hypothyroidism TSH is slightly elevated in setting of acute infection Continue levothyroxine Prediabetes HbA1C:6.18 May 2021 Past tobacco abuse DVT Px: Lovenox SQ CODE STATUS Full code Admission and Anticipated Discharge Date Admission Date: September 03, 2021 Subjective Patient is seen and examined at bedside States having minimal cough Denies any significant dyspnea Saturating 95% on 2 to 3 L supplemental oxygen No other complaints Review of Systems Review of Systems: All systems reviewed & are unremarkable except as noted in Subjective Physical Exam Physical Exam: Physical Exam: Vitals signs as noted above General Appearance:Moderately built and nourished, no apparent distress Head: normocephalic, Atraumatic Eyes: normal inspection, EOMI Neck: supple, Trachea midline Respiratory/Chest: Decreased breath sounds, CTA, No accessory muscle use Cardiovascular: S1, S2, No murmur Abdomen/GI:Soft, Non tender, Bowel sounds present Extremities/Musculoskeletal:normal inspection, Trace edema Neurologic/Psych:AAOX3, grossly no focal neurological deficits Skin: normal color, warm Results & Data Results & Data ([facility]) Vital Signs (Past 12 Hours) Vital Signs Temp Pulse Resp BP Pulse Ox 09/04/21 09:36 95 09/04/21 07:53 37 C 74 20 151/73 H 96 Laboratory Results Short CBC 09/04/21 Range/Units 05:46 WBC 5.45 (4.8-10.8) K/uL Hgb 13.7 (12.0-16.0) g/dL Hct 38.7 (37-47) % Plt Count 232 (130-400) K/uL BMP 09/03/21 09/04/21 19:50 05:46 Sodium 135 L 135 L Potassium 3.7 D 3.4 L Chloride 103 104 Carbon Dioxide 25 24 BUN 14 17 Creatinine 0.60 0.65 Glucose 116 H 105 H Calcium 8.1 L 8.4 L Liver Function 09/04/21 Range/Units 05:46 Total Bilirubin 0.3 (0.2-1) mg/dl AST 42 H (15-37) U/L ALT 34 (12-78) U/L Alkaline Phosphatase 80 (45-117) U/L Albumin 2.8 L (3.4-5.0) gm/dl
[2021-09-04] MEDS: SIMVASTATIN 20 MG TAB PO SCH (20:14)
[2021-09-05] MEDS: LEVOTHYROXINE SODIUM 100 MCG TABLET PO SCH (05:45)
[2021-09-05] MEDS: dexAMETHasone 6 MG in SYRINGE 0 ML IV SCH (08:02)
[2021-09-05] MEDS: FUROSEMIDE 20 MG TAB PO SCH (08:02)
[2021-09-05] MEDS: ENOXAPARIN INJ 40 MG/0.4 ML SYR SQ SCH (08:02)
[2021-09-05] MEDS: FAMOTIDINE 10 MG TABLET PO SCH ×2 (08:02→20:06)
[2021-09-05] MEDS: ASPIRIN 81 MG ECTAB PO SCH (08:03)
[2021-09-05] MEDS: MULTIVITAMIN TAB PO SCH (08:03)
[2021-09-05] MEDS: amLODIPine BESYLATE 5 MG TAB PO SCH (08:03)
[2021-09-05] MEDS: PANTOprazole 40 MG TAB PO SCH (08:04)
[2021-09-05] MEDS: LOSARTAN POTASSIUM 50 MG TAB PO SCH (08:04)
[2021-09-05] MEDS ORDERED: hydroCHLOROthiazide 25 MG TAB PO SCH (09:00)
[2021-09-05 10:09] LABS: Albumin Globulin Ratio 0.7 (0.9-2); Albumin Level 2.8 gm/dl (3.4-5.0); BUN Creatinine Ratio 22.6 (10-20); Bilirubin,Total 0.4 mg/dl (0.2-1); Calcium 8.6 mg/dl (8.5-10.1); Creatinine Clr Calc Pharmacy 59.7 ml/min; Est GFR (African American) 92.3 ml/min; Est GFR (Non-African American) 79.7 ml/min; Globulin 3.8 gm/dl (2.5-4.0); Magnesium 1.9 mg/dl (1.8-2.4); Potassium 4.2 mmol/L (3.5-5.1); Total Protein 6.6 gm/dl (6.4-8.2)
[2021-09-05] MEDS: REMDESIVIR 100 MG in SODIUM CHLORIDE 0.9% 230 ML IV SCH (11:40)
[2021-09-05] MEDS: SODIUM CHLORIDE 0.9% 10ML FLUSH IV SCH (12:40)
--- NOTE | 2021-09-05 18:45 | Hospitalist Progress Note ---
Date of Service September 05, 2021 Assessment & Plan (1) Pneumonia due to COVID-19 virus: Plan: COVID 19 Infection Hypoxia COVID Screen:positive on 09/03/21 CXR:No change in the bibasilar interstitial thickening. This may be chronic. No new focal lung consolidations identified. Troponin negative CRP: 0.37 Continue Remdesivir, Dexamethasone Isolation precautions Encourage frequent Proning Lasix, Albuterol PRN Continue Supplemental Oxygen as needed DVT prophylaxis on Lovenox Monitor LFTs, renal function while on Remdesivir Saturating low 90s on room air Plan for 2 step prior to discharge Hypokalemia Hypomagnesemia In setting of home diuretic use Replace electrolytes as needed H/O Diastolic CHF No signs of decompensation Monitor volume status Continue Lasix 20 mg daily Hyponatremia Likely due to HCTZ Monitor sodium levels Received gentle IV fluids Sodium 133 today Hypertension Continue amlodipine, losartan Hyperlipidemia on statin Hypothyroidism TSH is slightly elevated in setting of acute infection Continue levothyroxine Prediabetes HbA1C:6.18 May 2021 Past tobacco abuse DVT Px: Lovenox SQ CODE STATUS Full code Admission and Anticipated Discharge Date Admission Date: September 03, 2021 Subjective Patient is seen and examined at bedside States feeling well today Cough continues to improve Denies any dyspnea Saturating low 90s on room air Denies chest pain, dizziness, nausea, abdominal pain Appetite improved Review of Systems Review of Systems: All systems reviewed & are unremarkable except as noted in Subjective Physical Exam Physical Exam: Physical Exam: Vitals signs as noted above General Appearance:Moderately built and nourished, no apparent distress Head: normocephalic, Atraumatic Eyes: normal inspection, EOMI Neck: supple, Trachea midline Respiratory/Chest: Decreased breath sounds, CTA, No accessory muscle use Cardiovascular: S1, S2, No murmur Abdomen/GI:Soft, Non tender, Bowel sounds present Extremities/Musculoskeletal:normal inspection, Trace edema Neurologic/Psych:AAOX3, grossly no focal neurological deficits Skin: normal color, warm Results & Data Results & Data ([facility]) Vital Signs (Past 12 Hours) Vital Signs Temp Pulse Resp BP Pulse Ox 09/05/21 18:07 92 09/05/21 16:09 36.4 C L 67 16 123/70 95 09/05/21 15:40 93 Laboratory Results [facility] 09/05/21 09:04 Sodium 133 L Potassium 4.2 D Chloride 104 Carbon Dioxide 20 L BUN 16 Creatinine 0.72 Glucose 162 H Calcium 8.6 Liver Function 09/05/21 Range/Units 09:04 Total Bilirubin 0.4 (0.2-1) mg/dl AST 42 H (15-37) U/L ALT 38 (12-78) U/L Alkaline Phosphatase 82 (45-117) U/L Albumin 2.8 L (3.4-5.0) gm/dl
[2021-09-05] MEDS: SIMVASTATIN 20 MG TAB PO SCH (20:06)
[2021-09-06] MEDS: LEVOTHYROXINE SODIUM 100 MCG TABLET PO SCH (05:48)
[2021-09-06] MEDS: ENOXAPARIN INJ 40 MG/0.4 ML SYR SQ SCH (09:37)
[2021-09-06] MEDS: FAMOTIDINE 10 MG TABLET PO SCH (09:38)
[2021-09-06] MEDS: ASPIRIN 81 MG ECTAB PO SCH (09:38)
[2021-09-06] MEDS: amLODIPine BESYLATE 5 MG TAB PO SCH (09:38)
[2021-09-06] MEDS: LOSARTAN POTASSIUM 50 MG TAB PO SCH (09:39)
[2021-09-06] MEDS: MULTIVITAMIN TAB PO SCH (09:39)
[2021-09-06] MEDS: PANTOprazole 40 MG TAB PO SCH (09:39)
[2021-09-06] MEDS: FUROSEMIDE 20 MG TAB PO SCH (09:39)
[2021-09-06] MEDS: dexAMETHasone 6 MG in SYRINGE 0 ML IV SCH (09:43)
[2021-09-06 09:46] LABS: Albumin Level 2.6 gm/dl (3.4-5.0); BUN Creatinine Ratio 28.3 (10-20); Calcium 8.5 mg/dl (8.5-10.1); Creatinine Clr Calc Pharmacy 78.1 ml/min; Est GFR (African American) 103.4 ml/min; Est GFR (Non-African American) 89.2 ml/min; Magnesium 1.9 mg/dl (1.8-2.4); Potassium 3.8 mmol/L (3.5-5.1)
[2021-09-06 09:50] LABS: Albumin Globulin Ratio 0.7 (0.9-2); Bilirubin,Total 0.3 mg/dl (0.2-1); Globulin 3.7 gm/dl (2.5-4.0); Total Protein 6.3 gm/dl (6.4-8.2)
[2021-09-06] MEDS: REMDESIVIR 100 MG in SODIUM CHLORIDE 0.9% 230 ML IV SCH (12:15)
[2021-09-06] MEDS: SODIUM CHLORIDE 0.9% 10ML FLUSH IV SCH (13:28)
--- NOTE | 2021-09-06 13:55 | Hospitalist Progress Note ---
Date of Service September 06, 2021 Assessment & Plan (1) Pneumonia due to COVID-19 virus: Plan: COVID 19 Infection Hypoxia COVID Screen:positive on 09/03/21 CXR:No change in the bibasilar interstitial thickening. This may be chronic. No new focal lung consolidations identified. Troponin negative CRP: 0.37 Continue Remdesivir, Dexamethasone Day #4 Isolation precautions Encourage frequent Proning Lasix, Albuterol PRN DVT prophylaxis on Lovenox Monitor LFTs, renal function while on Remdesivir Saturating 95% on room air 2 step: Did not qualify for oxygen To discharge home today Hypokalemia Hypomagnesemia In setting of home diuretic use Replace electrolytes as needed H/O Diastolic CHF No signs of decompensation Monitor volume status Continue Lasix 20 mg daily Hyponatremia Likely due to HCTZ Monitor sodium levels Received gentle IV fluids Sodium 135 today Hypertension Continue amlodipine, losartan Hyperlipidemia on statin Hypothyroidism TSH is slightly elevated in setting of acute infection Continue levothyroxine Prediabetes HbA1C:6.18 May 2021 Past tobacco abuse DVT Px: Lovenox SQ CODE STATUS Full code Admission and Anticipated Discharge Date Admission Date: September 03, 2021 Subjective Patient is seen and examined at bedside States having chronic leg pain Otherwise feels well Saturating well on room air Denies any cough, dyspnea, dizziness, nausea, abdominal pain, chest pain Offers no other complaints Plan to be discharged home today Review of Systems Review of Systems: All systems reviewed & are unremarkable except as noted in Subjective Physical Exam Physical Exam: Physical Exam: Vitals signs as noted above General Appearance:Moderately built and nourished, no apparent distress Head: normocephalic, Atraumatic Eyes: normal inspection, EOMI Neck: supple, Trachea midline Respiratory/Chest: Decreased breath sounds, CTA, No accessory muscle use Cardiovascular: S1, S2, No murmur Abdomen/GI:Soft, Non tender, Bowel sounds present Extremities/Musculoskeletal:normal inspection, Trace edema Neurologic/Psych:AAOX3, grossly no focal neurological deficits Skin: normal color, warm Results & Data Results & Data ([facility]) Vital Signs (Past 12 Hours) Vital Signs Temp Pulse Pulse Pulse Pulse Resp Resp 09/06/21 10:39 87 87 87 20 09/06/21 07:45 36.3 C L 62 18 Resp Resp BP Pulse Ox Pulse Ox Pulse Ox Pulse Ox 09/06/21 10:39 20 20 95 94 95 09/06/21 07:45 156/74 H 98 Laboratory Results BMP 09/06/21 09:01 Sodium 135 L Potassium 3.8 Chloride 105 Carbon Dioxide 21 BUN 16 Creatinine 0.55 L Glucose 112 H Calcium 8.5 Liver Function 09/06/21 Range/Units 09:01 Total Bilirubin 0.3 (0.2-1) mg/dl AST 36 (15-37) U/L ALT 35 (12-78) U/L Alkaline Phosphatase 83 (45-117) U/L Albumin 2.6 L (3.4-5.0) gm/dl
--- NOTE | 2021-09-06 14:00 | Discharge Summary ---
Date of Service September 06, 2021 Admission HPI Per Admitting Provider History obtained from patient and records. Medical history significant for diastolic dysfunction (EF 55 to 20%, TTE 2019), valvular heart disease (mild MR, mild AR on recent TTE), hypertension, hyperlipidemia, hypothyroidism, prediabetes, past tobacco abuse. Last confinement 2010 for bacterial pneumonia. 1 week history of sinus congestion and stuffy nose with body aches. Symptom management recommended by PCP on outpatient evaluation a few days ago. No known recent COVID-19 contacts. Patient has not received COVID-19 vaccination. Persistent dry cough with shortness of breath on exertion without chest pain. Nausea, vomiting diarrhea without abdominal pain. Lowest O2 sats at the ER 93 on room air. Decadron administered after positive COVID-19 test resulted. Medical History as above Surgical History : Cataract surgery, Cholecystostomy, bladder defect repair, throat surgery Family History : Breast cancer Personal/Social history : Past tobacco abuse, no EtOH intake, homemaker in her younger years Admission Exam Per Admitting Provider Physical Exam Physical Exam: GENERAL: Comfortable, slightly hard of hearing, pleasant, no respiratory distress SKIN: Normal color, warm HEENT: [place] palpebral conjunctivae, no ptosis, dry buccal mucosa, nasal cannula in place NECK : Supple, no tenderness CHEST : Decreased breath sounds, no tenderness HEART : RRR, no obvious murmurs ABDOMEN: Some distention, nontender EXTREMITIES : Minimal LE swelling, no LE tenderness, no other conspicuous deformities noted NEUROLOGIC : Coherent, no facial asymmetry, mild hearing impairment, no other gross focality Principal Diagnosis COVID-19 infection Hypoxia Hypokalemia Hypomagnesemia Hyponatremia Discharge Data Allergies Allergy/AdvReac Type Severity Reaction Status Date / Time oseltamivir [From Tamiflu] AdvReac Unknown Nausea/Vomi Verified 09/04/21 12:23 ting Corticosteroids AdvReac HIGH BP Verified 09/03/21 06:21 (Glucocorticoids) WITH STEROIDS Consultations 09/03/21 03:38 ED Decision to Admit Stat Hospital Course (1) Pneumonia due to COVID-19 virus: COVID 19 Infection Hypoxia COVID Screen:positive on 09/03/21 CXR:No change in the bibasilar interstitial thickening. This may be chronic. No new focal lung consolidations identified. Troponin negative CRP: 0.37 Continue Remdesivir, Dexamethasone Day #4 Isolation precautions Encourage frequent Proning Lasix, Albuterol PRN DVT prophylaxis on Lovenox Monitor LFTs, renal function while on Remdesivir Saturating 95% on room air 2 step: Did not qualify for oxygen To discharge home today Hypokalemia Hypomagnesemia In setting of home diuretic use Replace electrolytes as needed H/O Diastolic CHF No signs of decompensation Monitor volume status Continue Lasix 20 mg daily Hyponatremia Likely due to HCTZ Monitor sodium levels Received gentle IV fluids Sodium 135 today Hypertension Continue amlodipine, losartan Hyperlipidemia on statin Hypothyroidism TSH is slightly elevated in setting of acute infection Continue levothyroxine Prediabetes HbA1C:6.18 May 2021 Past tobacco abuse DVT Px: Lovenox SQ CODE STATUS Full code Total Time Total Time Spent Total Time Spent (In Minutes): 40 minutes Discharge Plan Discharge Items Patient Disposition: Home - Self-Care Reason For Visit: RESP FAILURE, COVID Discharge Diagnosis: COVID-19 infection Hypoxia Hypokalemia Hypomagnesemia Hyponatremia Condition on Discharge: Good Activity: Per Instructions section Sexual Activity: Wait until after follow-up appointment Non-emergency contact: Primary Care Provider Call non-emergency contact if: you have any medication questions, your symptoms worsen, your pain is concerning for you and you have a fever Follow-up/Referrals: Pranav Gutiérrez MD [Primary Care Provider] - Diet: Heart Healthy and Lactose Intolerant Addtl Attending Provider Instructions: Follow-up with your primary care physician Dr. Gutiérrez in 1 week as advised Seek immediate medical attention if your symptoms reoccur or worsen Please take all medications as instructed on discharge list below. Please call if you have any questions or problems. You can reach a [facility] hospitalist on duty at [facility] 24 hours a day by calling [phone] Pending Studies at Discharge: No Stand-Alone Forms: My [facility], Smoking Cessation Medications and DC Order Prescriptions: New famotidine [Acid Senior Architectural Designer (famotidine)] 10 mg Tablet 10 mg PO BID PRN (Reason: Dyspepsia) Qty: 60 RF: 0 pantoprazole 40 mg Tablet,Delayed Release (Dr/Ec) 40 mg PO DAILY Qty: 30 RF: 1 Continued multivitamin Tablet 1 tab PO DAILY RF: 0 amlodipine 2.5 mg tablet 2.5 mg PO DAILY RF: 0 Carla 180 mg Tablet 180 mg PO DAILY PRN (Reason: allergies) RF: 0 meloxicam 7.5 mg tablet 7.5 mg PO DAILY RF: 0 levothyroxine 100 mcg tablet 100 mcg PO DAILYBB RF: 0 simvastatin 20 mg tablet 20 mg PO HS RF: 0 Benadryl Allergy 25 mg Tablet 25 mg PO Q6H PRN (Reason: rhinitis) RF: 0 magnesium 250 mg Tablet 250 mg PO DAILY RF: 0 hydrochlorothiazide 25 mg tablet 25 mg PO DAILY RF: 0 losartan 100 mg tablet 100 mg PO DAILY RF: 0 fluticasone propionate 50 mcg/actuation spray,suspension 2 spray INTRANASAL DAILY RF: 0 coenzyme Q10 [CoQ-10] 100 mg Capsule 100 mg PO DAILY RF: 0 calcium citrate-vitamin D3 [Citracal plus D] 250 mg-5 mcg (200 unit) Tablet 1 tab PO DAILY RF: 0 Discontinued omeprazole 20 mg capsule,delayed release(DR/EC) 20 mg PO DAILYBB RF: 0 Discharge Orders: Discharge Order (Routine); Ordered 09/06/21 Ordered By: Kenan Walker Admission Data Admit Date/Time: 09/03/21 03:59 Attending Provider: Kenan Walker Admit Provider: Robert Nuñez Primary Care Provider: Pranav Gutiérrez Other Providers: Robert Nuñez
== END 2021-09-06 16:37 | disposition home or self-care (01) | DRG 177 ==
LOC: ED 22:29 → EDINP 09-03 03:59 → 3W 09-03 19:29
DX: E86.0 Dehydration; E03.9 Hypothyroidism, unspecified; E87.1 Hypo-osmolality and hyponatremia; J12.82 Pneumonia due to coronavirus disease 2019; Z79.899 Other long term (current) drug therapy; R09.02 Hypoxemia; R19.7 Diarrhea, unspecified; Z79.1 Long term (current) use of non-steroidal anti-inflammatories (NSAID); Z79.890 Hormone replacement therapy; E87.6 Hypokalemia; E78.5 Hyperlipidemia, unspecified; T50.2X5A Adverse effect of carbonic-anhydrase inhibitors, benzothiadiazides and other diuretics, initial encounter; R73.03 Prediabetes; Z87.891 Personal history of nicotine dependence; U07.1 COVID-19; I11.0 Hypertensive heart disease with heart failure; Z88.8 Allergy status to other drugs, medicaments and biological substances; I50.30 Unspecified diastolic (congestive) heart failure; E83.42 Hypomagnesemia; R11.2 Nausea with vomiting, unspecified